=== PATIENT | male | born 1965 | race Caucasian/White ===

== ENCOUNTER 2017-07-07 07:21 | Inpatient (IN) | payer MEDICAID ==
[~2017-07-07] VITALS: Ht 182.9 cm; Wt 85.3 kg
[2017-07-07 07:28] VITALS: BP 162/108
[2017-07-07] MEDS ORDERED: LEVO0.0512 PO (07:37)
--- NOTE | 2017-07-07 07:38 | NUR ---
PT AMB TO RESTROOM WITH GIRLFRIEND. UCUP GIVEN.
--- NOTE | 2017-07-07 07:43 | NUR ---
PATIENT PRESENTS TO ED WITH C/O LLQ PAIN W/N/V SINCE LAST NOC;PAIN IS CONSTANT AND NON RADIATING;PT IS SHAKY; SKIN IS PINK/WARM/DRY; AAOX4 WITH EVEN AND STEADY GAIT; LUNGS CLEAR BL; HR EVEN AND REGULAR; PT DENIES ANY FEVER, CP, SOB, OR COUGH AT THIS TIME; PATIENT STATES PAIN OF 10/10 AT THIS TIME; VSS; PATIENT POSITIONED FOR COMFORT; HOB ELEVATED; BEDRAILS UP X2; BED DOWN.ALL MONITORS IN PLACED; ER MD MADE AWARE OF PT STATUS.
[2017-07-07] MEDS ORDERED: MORPHINE SULFATE 4 MG/ML SYR IVP ONE (07:45)
[2017-07-07] MEDS ORDERED: ONDANSETRON 4 MG/2 ML VIAL IVP ONE (07:45)
[2017-07-07] MEDS ORDERED: HYDROcodone/APAP 10/325 MG 1 TAB TAB PO ONE (07:55)
[2017-07-07 08:20] LABS: BASOPHILS # (AUTO) 0.2 K/uL (0.00-0.22); BASOPHILS % (AUTO) 1.3 % (0.0-2.0); EOSINOPHILS # (AUTO) 0.1 K/uL (0-0.4); EOSINOPHILS % (AUTO) 0.9 % (0.0-4.0); HEMATOCRIT 45.5 % (36-52); HEMOGLOBIN 15.3 g/dL (12.0-18.0); LYMPHOCYTES # (AUTO) 0.6 K/uL (2.0-11.5); LYMPHOCYTES % (AUTO) 4.8 % (20.5-51.1); MEAN CORPUSCULAR HEMOGLOBIN 30 pg (27-31); MEAN CORPUSCULAR HGB CONC 34 g/dL (33-37); MEAN CORPUSCULAR VOLUME 91 fL (80-94); MONOCYTES # (AUTO) 0.7 K/uL (0.8-1.0); MONOCYTES % (AUTO) 5.8 % (1.7-9.3); NEUTROPHILS # (AUTO) 10.2 K/uL (1.8-7.7); NEUTROPHILS % (AUTO) 87.2 % (42.2-75.2); PLATELET COUNT (AUTO) 270 K/uL (140-450); RED BLOOD CELL COUNT(AUTO) 5.01 MIL/uL (4.20-6.10); RED CELL DISTRIBUTION WIDTH 12.4 % (11.6-13.7); WHITE BLOOD COUNT (AUTO) 11.8 K/uL (4.8-10.8)
--- NOTE | 2017-07-07 08:20 | NUR ---
MORPHINE WAS WASTED ON THE PHARMACEUTICAL BIN;PT REFUSE MEDICINE;ER MD NOTIFIED;
[2017-07-07 08:31] LABS: APPEARANCE,URINE HAZY (CLEAR); BILIRUBIN,URINE NEGATIVE (NEGATIVE); BLOOD, URINE 3+ (NEGATIVE); COLOR,URINE ORANGE (YELLOW); LEUKOCYTE ESTERASE ,URINE NEGATIVE (NEGATIVE); NITRITE, URINE NEGATIVE (NEGATIVE); UGLUCOSE NEGATIVE (NEGATIVE)
[2017-07-07 08:35] LABS: ANION GAP 14.3 (8-16); CARBON DIOXIDE 27.5 mmol/L (21-32); CREATININE 1.2 mg/dL (0.7-1.3); POTASSIUM 3.8 mmol/L (3.5-5.1)
[2017-07-07 08:37] LABS: PROTHROMBIN TIME 9.9 secs (10.8-13.4)
[2017-07-07 08:41] LABS: ALBUMIN 3.8 g/dL (3.4-5.0); TOTAL BILIRUBIN 0.7 mg/dL (0.0-1.0)
--- NOTE | 2017-07-07 08:49 | NUR ---
WENT TO CT SCAN ACCOMPANIED BY TECH.
[2017-07-07 08:50] LABS: RBC,URINE 20-50 /HPF (0-5); WBC,URINE 0-5 (RARE) /HPF (0-5)
--- NOTE | 2017-07-07 09:12 | NUR ---
back from ct scan accompanied by elkin.
[2017-07-07] MEDS ORDERED: KETOROLAC 30 MG/ML VIAL IVP ONE (09:20)
--- NOTE | 2017-07-07 10:58 | NUR ---
PT SLEEPING;NO ACUTE DISTRESS NOTED;ALL MONITORS IN PLACED;WILL CONTINUE TO MONITOR PT.
--- NOTE | 2017-07-07 11:07 | NUR ---
Patient will be admitted to care of [facility]. Admited to MS. Will go to room 110 A. Belongings list completed. Report to AKIRA HER.
--- NOTE | 2017-07-07 11:15 | NUR ---
PT ARRIVED ON UNIT FROM ER ON [facility], PT AMBULATED FROM [facility] TO BED WITHOUT ASST WITH STEADY GAIT, IV ON LEFT AC 20G SL, PT A/OX4, SPOUSE AT BEDSIDE, VS WITHIN NORMAL RANGES, MRSA SCREENING DONE, BROWN SOCKS APPLIED, SKIN INTACT, DENIES ANY PAIN AT THIS TIME, NO S/S OF ACUTE DISTRESS, SAFETY PRECAUTIONS TAKEN, CALL LIGHT WITHIN REACH, WILL AWAIT ORDERS, WILL START ADMISSION PROCESS.
[2017-07-07] MEDS ORDERED: FINASTERIDE 5 MG TAB PO SCH ×2 (11:35→12:00)
[2017-07-07] MEDS ORDERED: ONDANSETRON 4 MG/2 ML VIAL IVP PRN (11:35)
[2017-07-07] MEDS ORDERED: LORazepam 2 MG/ML VIAL IVP PRN (11:35)
[2017-07-07] MEDS ORDERED: MORPHINE SULFATE 2 MG/ML SYR IVP PRN (11:35)
[2017-07-07] MEDS ORDERED: HYDROcodone/APAP 5/325 MG 1 TAB TAB PO PRN (11:35)
[2017-07-07] MEDS ORDERED: ACETAMINOPHEN 325 MG TAB PO PRN (11:35)
[2017-07-07] MEDS: DEXT 5% /NACL 0.9% 1,000 ML IV SCH ×2 (12:11→13:47)
--- NOTE | 2017-07-07 12:14 | NUR ---
PROSCAR NOT GIVEN PER PT, PT REFUSED TO TAKE MEDICATION.
[2017-07-07 16:00] VITALS: BP 118/79
--- NOTE | 2017-07-07 16:00 | NUR ---
PT LYING IN BED ON RA, PT DENIES PAIN, NO S/S OF ACUTE DISTRESS, CALL LIGHT WITHIN REACH, WILL CONT TO MONITOR.
--- NOTE | 2017-07-07 18:31 | NUR ---
SPOKE TO DR JAMES WHO IS COVERING FOR DR MOHAMUD, DR WILL BE HERE TO ASSESS PT FROM [phone], PT NOTIFIED.
--- NOTE | 2017-07-07 19:18 | NUR ---
ENDORSED PT TO ACTUARIAL TECHNICIAN NURSE AT BEDSIDE FOR CONTINUITY OF CARE, PT STABLE CONDITION.
--- NOTE | 2017-07-07 19:19 | NUR ---
RECEIVED HANDOFF REPORT FROM AM RN. PATIENT A&OX4. PATIENT DENIES PAIN. IV SITE PATENT AND INTACT. NO SIGNS OR SYMPTOMS OF ACUTE DISTRESS NOTED. CALL LIGHT WITHIN REACH. WILL CONTINUE TO MONITOR.
[2017-07-07 20:00] VITALS: BP 112/67
--- NOTE | 2017-07-07 21:30 | NUR ---
UROLOGIST IN TO SEE PATIENT.
[2017-07-07] MEDS ORDERED: KETOROLAC 30 MG/ML VIAL IVP SCH (23:15)
[2017-07-08] VITALS: BP 119/78
[2017-07-08 00:01] VITALS: BP 112/67
--- NOTE | 2017-07-08 02:00 | NUR ---
PATIENT DISCHARGED TO HOME, STATES PAIN 6/10 WILL MEDICATE ORDERED. CHARGE NURSE AWARE. IV SITE OUT, TIP INTACT. NO SIGNS OR SYMPTOMS OF ACUTE DISTRESS NOTED. EDUCATION PROVIDED FOR DISCHARGE. PATIENT VERBALIZED UNDERSTANDING.
--- NOTE | 2017-07-08 02:03 | NUR ---
PATIENT STATES NOT WANTING TO STAY FOR PAIN REASSESSMENT DUE TO PATIENT SHARING SAME ROOM. PATIENT WALKED OFF UNIT WITH . PATIENT GAIT STEADY, NO SIGNS OR SYMPTOMS OF ACUTE DISTRESS NOTED.
[2017-07-08] MEDS ORDERED: LEVOTHYROXINE 0.05 MG TAB PO SCH (09:00)
[2017-07-08] MEDS ORDERED: FINASTERIDE 5 MG TAB PO SCH (09:00)
--- NOTE | 2017-07-10 10:14 | NUR ---
CM NOTE RETRO REVIEW FAXED TO [facility] / FAX# [phone]
== END 2017-07-08 02:03 | disposition home or self-care (01) | DRG 465 ==
LOC: MED 07:21 → MTU 10:58
PROVIDERS: ADMIT Preventive Medicine Preventive Medicine/Occupational Environmental Medicine; ATTEND Preventive Medicine Preventive Medicine/Occupational Environmental Medicine
DX: N13.2 Hydronephrosis with renal and ureteral calculous obstruction (principal); E89.0 Postprocedural hypothyroidism; R03.0 Elevated blood-pressure reading, without diagnosis of hypertension
CPT/HCPCS: 36415; 71010; 80053; 81001; 83605; 83690; 84484; 85025; 85610; 85730; 87081; 87086; 93005; 96374; 96375; 99285; J1885; J2270; J2405; J7042; Q0092; Q9967